=== PATIENT | female | born 1975 | race Caucasian/White ===

== ENCOUNTER 2020-08-05 20:29 | Emergency (ER) | payer OTHER ==
[~2020-08-05] VITALS: Ht 170.2 cm; Wt 99.8 kg
[2020-08-05 20:41] VITALS: BP_SYST 118
--- NOTE | 2020-08-05 20:53 | NUR ---
Patient to ER bed 8 to gown for evaluation. Side rails up. Report given to MASOUD GREEN.
--- NOTE | 2020-08-05 20:53 | NUR ---
ER at bedside examining patient.
--- NOTE | 2020-08-05 20:54 | NUR ---
Pt brought by self, A&Ox4, pt presents to ER with R thumb pain /swelling after a dumbell fell on hand 20 minutes ago, skin pink and warm, cap refill <3.
[2020-08-05] MEDS ORDERED: LIDOCAINE 1% 10 MG/ML, 20 ML MDV INJ ONE (21:00)
[2020-08-05] MEDS ORDERED: HYDROcodone/ACETAMIN 5-325 MG TAB (NORCO/ VICODIN) PO ONE (21:00)
[2020-08-05 22:52] VITALS: BP_SYST 118
--- NOTE | 2020-08-05 22:53 | NUR ---
Patient given written and verbal discharge instructions and verbalizes understanding. ER MD discussed with patient the results and treatment provided. Patient in stable condition. ID arm band removed. No Rx Converse and Ibuprofen given. Patient educated on pain management and to follow up with PMD. Pain Scale 2/10 tolerable for patient . Opportunity for questions provided and answered. Medication side effect fact sheet provided.
== END 2020-08-05 22:52 | disposition home or self-care (01) ==
LOC: SED 20:29
DX: S62.211A Bennett's fracture, right hand, initial encounter for closed fracture (principal); S60.121A Contusion of right index finger with damage to nail, initial encounter; J45.909 Unspecified asthma, uncomplicated; W22.8XXA Striking against or struck by other objects, initial encounter; Y93.89 Activity, other specified; Y92.89 Other specified places as the place of occurrence of the external cause; Y99.8 Other external cause status
CPT/HCPCS: 11740; 73140; 99284; J2001

== ENCOUNTER 2023-05-12 15:02 | Emergency (ER) | payer OTHER ==
[~2023-05-12] VITALS: Ht 170.2 cm; Wt 108.9 kg
[2023-05-12 15:16] VITALS: BP_SYST 125
== END 2023-05-12 16:23 | disposition left against medical advice (07) ==
LOC: SED 15:02
DX: R10.13 Epigastric pain (principal); R11.2 Nausea with vomiting, unspecified; J45.909 Unspecified asthma, uncomplicated; Z53.21 Procedure and treatment not carried out due to patient leaving prior to being seen by health care provider
CPT/HCPCS: 99281